=== PATIENT | female | born 1985 | race Caucasian/White ===

== ENCOUNTER 2017-11-29 08:30 | Inpatient (IN) | payer MEDICAID ==
[~2017-11-29] VITALS: Ht 160 cm; Wt 65.0 kg
--- NOTE | ~2017-11-29 | HP ---
PATIENT: TYLOR GERMAN MEDICAL RECORD: [id number] ACCOUNT: [id number] LOCATION:[id number] : 84 ADMISSION DATE: 11/29/17 HISTORY AND PHYSICAL EXAMINATION HISTORY OF PRESENT ILLNESS: A 32-year-old female presented to the Emergency Room via EMS complaining of abdominal flank pain for the past 3 days, burning with urination, fever and chills. PAST MEDICAL HISTORY: Reported past history of Hep B. Limited historian. REVIEW OF SYSTEMS: HEENT: Denies cephalgia, visual changes, tinnitus, epistaxis, or dysphagia. CARDIOVASCULAR: Denies chest pain or palpitations. PULMONARY: Denies hemoptysis. GASTROINTESTINAL: Denies hematemesis, hematochezia, or melena. GENITOURINARY: Admits pain and burning with urination, fever and chills. MUSCULOSKELETAL: Left flank pain. ENDOCRINE: Denies polyuria, polydipsia, or polyphagia. PHYSICAL EXAMINATION: VITAL SIGNS: Temp 101.3, heart rate 113, blood pressure 97/62, respirations 18, and O2 sats 97% on room air. GENERAL: Alert, oriented, mild to moderate distress secondary to above. HEENT: Normocephalic, atraumatic. Eyes: Pupils are equally round and reactive to light and accommodation. Extraocular muscles intact. Conjunctiva was not injected. Ears: Canals patent, TMs are intact. Nose: Nares patent without drainage. Throat: No erythema, no exudates. NECK: Supple. No lymphadenopathy, no JVD. HEART: Regular, tachycardic. LUNGS: Clear to auscultation bilaterally. Breathing is nonlabored. ABDOMEN: Soft. Left-sided tenderness. No rebound, no guarding, no CVA tenderness. EXTREMITIES: Present times 4, no edema. NEUROLOGIC: No focal deficits. SKIN: Warm and dry. No rash. LABORATORY DATA: CBC: White count 17,200, hemoglobin 14.6, hematocrit 42.1, platelets 179. Chemistry shows a sodium 131, potassium 4.0, chloride 96, bicarbonate 26.2, BUN 11, creatinine 0.8. Calcium 8.9, magnesium 1.8. T-bili 1.21, AST 20, ALT 33, alkaline phosphatase 88, serum is negative. Urinalysis: Yellow, cloudy, specific gravity 1.015, 1+ protein, negative urine ketones, 2+ blood, positive nitrites, 2+ leukocyte esterase, greater than 50 wbc's per high powered field, many bacteria. Urine drug screen is positive for amphetamines, positive for THC. CT abdomen and pelvis with no significant abnormalities. ASSESSMENT AND PLAN: 1. Urinary tract infection, likely pyelonephritis, leukocytosis. 2. Illicit drug abuse, amphetamine abuse, marijuana abuse. The patient is admitted. IV fluids, IV antibiotics. Urine culture obtained, pending. TRANSINT:[id number] Voice Confirmation ID: [id number] DOCUMENT ID: [id number] HISTORY AND PHYSICAL [id number] TYLOR GERMAN ROBERT DO at 0817 CC: [id number] DICTATION DATE: 11/29/17 183 [employer]ITION [employer]SEMBL[employer] I LABORER: 11/29/[address] [facility] [address] [place] [address]
[2017-11-29 09:01] LABS: BASOPHILS 0.1 % (0-2); EOSINOPHILS 0.2 % (0-7); HEMATOCRIT 42.1 % (36.0-48.0); HEMOGLOBIN 14.6 g/dL (12-16); IMMATURE GRANULOCYTES 0.4 % (0-5); LYMPHOCYTES 7.8 % (15-50); MCH 29.4 pg (26.0-34.0); MCHC 34.7 g/dL (31.0-37.0); MCV 84.9 fL (80.0-100.0); MEAN PLATELET VOLUME 8.8 fL (7.4-10.4); MONOCYTES 16.4 % (2-11); NEUTROPHILS 75.1 % (40-80); PLATELET COUNT 179 10x3/uL (130-400); RBC 4.96 10x6/uL (4.00-5.40); RDW 14.5 % (11.5-14.5); WBC 17.2 10x3/uL (4.8-10.8)
[2017-11-29 09:10] LABS: HCG SERUM NEGATIVE (NEGATIVE)
[2017-11-29 09:24] LABS: APPEARANCE CLOUDY (CLEAR); BACTERIA MANY /hpf (NONE SEEN); BILIRUBIN NEGATIVE (NEGATIVE); COLOR DK YELLOW (YELLOW); EPITHELIAL CELLS 0-5 /hpf (0-5); GLUCOSE NEGATIVE (NEGATIVE); KETONE NEGATIVE (NEGATIVE); MUCUS <1+ /lpf (NONE SEEN); NITRITE POSITIVE (NEGATIVE); PROTEIN 1+ mg/dL (NEGATIVE); SPECIFIC GRAVITY 1.015 (1.005-1.020); WHITE CELLS - URINE >50 /hpf (0-5)
[2017-11-29 09:48] LABS: UDS - AMPHET POSITIVE QUAL (NEGATIVE); UDS - BARB NEGATIVE QUAL (NEGATIVE); UDS - BENZO NEGATIVE QUAL (NEGATIVE); UDS - COCAINE NEGATIVE QUAL (NEGATIVE); UDS - OPIATE NEGATIVE QUAL (NEGATIVE); UDS - PCP NEGATIVE QUAL (NEGATIVE); UDS - THC POSITIVE QUAL (NEGATIVE)
[2017-11-29 09:49] LABS: ALBUMIN 3.8 g/dL (3.4-5.0); ALKALINE PHOSPHATASE 88 U/L (46-116); ALT (SGPT) 33 U/L (10-68); BILIRUBIN - TOTAL 1.21 mg/dL (0.2-1.3); CALC OSMOLALITY 262 mosm/kg (275-300); CALCIUM 8.9 mg/dL (8.5-10.1); CARBON DIOXIDE 26.2 mmol/L (21.0-32.0); CHLORIDE - SERUM 96 mmol/L (98-107); CREATININE - SERUM 0.8 mg/dL (0.6-1.3); GLUCOSE 118 mg/dL (74-106); MAGNESIUM - SERUM 1.8 mg/dL (1.8-2.4); PROTEIN - SERUM 7.7 g/dL (6.4-8.2); SODIUM 131 mmol/L (136-145); UREA NITROGEN 11 mg/dL (7-18); eGFR NON AFRICAN AMERICAN 87 mL/min (90-120)
[2017-11-29 12:08] VITALS: BP 102/57
[2017-11-29] MEDS ORDERED: PROVENTIL HFA6.7 GM INH (12:09)
[2017-11-29] MEDS ORDERED: PHENERGAN25 M1 PO (12:10)
[2017-11-29 15:49] VITALS: BP 97/56
[2017-11-29 19:46] VITALS: BP 102/57; Ht 160 cm; Wt 65.0 kg
[2017-11-29 22:19] VITALS: BP 101/58
[2017-11-30 04:40] VITALS: BP 112/58
[2017-11-30 04:49] LABS: BASOPHILS 0.1 % (0-2); EOSINOPHILS 0.6 % (0-7); HEMATOCRIT 36.4 % (36.0-48.0); HEMOGLOBIN 12.2 g/dL (12-16); IMMATURE GRANULOCYTES 0.4 % (0-5); LYMPHOCYTES 7.8 % (15-50); MCH 28.6 pg (26.0-34.0); MCHC 33.5 g/dL (31.0-37.0); MCV 85.4 fL (80.0-100.0); MEAN PLATELET VOLUME 9.4 fL (7.4-10.4); MONOCYTES 14.8 % (2-11); NEUTROPHILS 76.3 % (40-80); PLATELET COUNT 159 10x3/uL (130-400); RBC 4.26 10x6/uL (4.00-5.40); RDW 14.5 % (11.5-14.5)
[2017-11-30 05:09] LABS: CALC OSMOLALITY 269 mosm/kg (275-300); CARBON DIOXIDE 22.3 mmol/L (21.0-32.0); CHLORIDE - SERUM 103 mmol/L (98-107); CREATININE - SERUM 0.7 mg/dL (0.6-1.3); GLUCOSE 139 mg/dL (74-106); POTASSIUM - SERUM 3.7 mmol/L (3.5-5.1); SODIUM 134 mmol/L (136-145); UREA NITROGEN 13 mg/dL (7-18); eGFR NON AFRICAN AMERICAN > 90 mL/min (90-120)
[2017-11-30 09:58] VITALS: BP 97/60
[2017-11-30 12:49] VITALS: BP 96/61
[2017-11-30 15:57] VITALS: BP 96/69
[2017-11-30 21:58] VITALS: BP 107/65
[2017-12-01 00:11] VITALS: BP 102/62
[2017-12-01 03:10] LABS: BASOPHILS 0.1 % (0-2); EOSINOPHILS 1.5 % (0-7); HEMATOCRIT 34.9 % (36.0-48.0); HEMOGLOBIN 11.4 g/dL (12-16); IMMATURE GRANULOCYTES 0.3 % (0-5); LYMPHOCYTES 17.6 % (15-50); MCH 28.2 pg (26.0-34.0); MCHC 32.7 g/dL (31.0-37.0); MCV 86.4 fL (80.0-100.0); MEAN PLATELET VOLUME 9.2 fL (7.4-10.4); MONOCYTES 11.7 % (2-11); NEUTROPHILS 68.8 % (40-80); PLATELET COUNT 149 10x3/uL (130-400); RBC 4.04 10x6/uL (4.00-5.40); RDW 14.9 % (11.5-14.5); WBC 10.4 10x3/uL (4.8-10.8)
[2017-12-01 03:25] LABS: CALC OSMOLALITY 279 mosm/kg (275-300); CALCIUM 8.1 mg/dL (8.5-10.1); CARBON DIOXIDE 25.8 mmol/L (21.0-32.0); CHLORIDE - SERUM 106 mmol/L (98-107); CREATININE - SERUM 0.7 mg/dL (0.6-1.3); GLUCOSE 112 mg/dL (74-106); POTASSIUM - SERUM 3.9 mmol/L (3.5-5.1); SODIUM 140 mmol/L (136-145); UREA NITROGEN 12 mg/dL (7-18); eGFR NON AFRICAN AMERICAN > 90 mL/min (90-120)
[2017-12-01 05:16] VITALS: BP 108/54
[2017-12-01 08:39] VITALS: BP 103/57
[2017-12-01] MEDS ORDERED: CIPRO500 MG PO (10:16)
== END 2017-12-01 11:31 | disposition home or self-care (01) | DRG 690 ==
LOC: D.ER 08:30 → D.MS 11:08
PROVIDERS: Emergency Medicine; Family Medicine
DX: N12 Tubulo-interstitial nephritis, not specified as acute or chronic (principal); F15.10 Other stimulant abuse, uncomplicated; F12.10 Cannabis abuse, uncomplicated; F17.200 Nicotine dependence, unspecified, uncomplicated